=== PATIENT | female | born 1995 | race Caucasian/White ===

== ENCOUNTER 2016-11-10 09:10 | Emergency (ER) | payer OTHER ==
[~2016-11-10] VITALS: Ht 170.2 cm; Wt 77.1 kg
[~2016-11-10 09:10] MED LIST: KEF250; PROS
[2016-11-10 10:57] LABS: CALCIUM 8.9 mg/dL (8.5-10.1); CARBON DIOXIDE 23.8 mmol/L (21-32); CHLORIDE SERUM 106 mmol/L (98-107); CREATININE SERUM 0.7 mg/dL (0.6-1.0); GFR1 > 60 mL/min; GLUCOSE SERUM 93 mg/dL (74-106); POTASSIUM SERUM 3.9 mmol/L (3.5-5.1); SODIUM SERUM 141 mmol/L (136-145)
[2016-11-10 11:01] LABS: ALBUMIN 3.9 g/dL (3.4-5.0); ALKALINE PHOSPHATASE 82 U/L (46-116); ALT/SGPT 25 U/L (14-59); AST/SGOT 20 U/L (15-37); BILIRUBIN TOTAL 0.4 mg/dL (0.20-1.00); LIPASE 87 IU/L (73-393); TOTAL PROTEIN, SERUM 7.6 g/dL (6.4-8.2)
[2016-11-10 11:22] LABS: BASOPHIL % 0.6 % (0-2); PLATELET COUNT 310 x10^3mcL (130-400); RED CELL DISTRIBUTION WIDTH 13.6 % (11.5-14.5)
[2016-11-10 12:04] VITALS: BP 126/85
== END 2016-11-10 12:05 | disposition home or self-care (01) ==
LOC: ED 09:10
PROVIDERS: Emergency Medicine
DX: R10.9 Unspecified abdominal pain (principal); J45.909 Unspecified asthma, uncomplicated
CPT/HCPCS: 36415; J1885

== ENCOUNTER 2018-09-02 10:58 | Emergency (ER) | payer OTHER ==
[~2018-09-02] VITALS: Ht 172.7 cm; Wt 74.8 kg
[2018-09-02 11:35] VITALS: Ht 172.7 cm; Wt 74.8 kg
[2018-09-02 15:05] VITALS: BP 110/74
== END 2018-09-02 15:05 | disposition home or self-care (01) ==
LOC: ED 10:58
DX: R05 Cough (principal); N94.89 Other specified conditions associated with female genital organs and menstrual cycle; R50.9 Fever, unspecified; J45.909 Unspecified asthma, uncomplicated

== ENCOUNTER 2018-10-18 12:59 | Emergency (ER) | payer OTHER ==
[~2018-10-18] VITALS: Ht 170.2 cm; Wt 76.2 kg
[2018-10-18 13:10] VITALS: BP 92/52; Ht 170.2 cm; Wt 76.2 kg
== END 2018-10-18 15:14 | disposition home or self-care (01) ==
LOC: ED 12:59
DX: L02.415 Cutaneous abscess of right lower limb (principal); J45.909 Unspecified asthma, uncomplicated
CPT/HCPCS: J2001

== ENCOUNTER 2018-10-20 17:23 | Emergency (ER) | payer OTHER ==
[~2018-10-20] VITALS: Ht 170.2 cm; Wt 76.2 kg
[2018-10-20 17:30] VITALS: Ht 170.2 cm; Wt 76.2 kg
[2018-10-20 19:42] VITALS: BP 127/66
== END 2018-10-20 19:42 | disposition home or self-care (01) ==
LOC: ED 17:23
DX: L02.234 Carbuncle of groin (principal); J45.909 Unspecified asthma, uncomplicated

== ENCOUNTER 2019-03-07 10:53 | Emergency (ER) | payer MEDICAID ==
[2019-03-07 12:00] LABS: BASOPHIL % 0.3 % (0-2); PLATELET COUNT 314 x10^3mcL (130-400); RED CELL DISTRIBUTION WIDTH 14.1 % (11.5-14.5)
[2019-03-07 12:06] LABS: CALCIUM 8.9 mg/dL (8.5-10.1); CARBON DIOXIDE 24.8 mmol/L (21-32); CHLORIDE SERUM 101 mmol/L (98-107); CREATININE SERUM 0.6 mg/dL (0.6-1.0); GFR1 > 60 mL/min; GLUCOSE SERUM 75 mg/dL (74-106); POTASSIUM SERUM 3.8 mmol/L (3.5-5.1); SODIUM SERUM 138 mmol/L (136-145)
[2019-03-07 12:10] LABS: ALBUMIN 3.9 g/dL (3.4-5.0); ALKALINE PHOSPHATASE 56 U/L (46-116); ALT/SGPT 14 U/L (14-59); AST/SGOT 8 U/L (15-37); BILIRUBIN TOTAL 0.36 mg/dL (0.20-1.00); LIPASE 53 IU/L (73-393); TOTAL PROTEIN, SERUM 7.9 g/dL (6.4-8.2)
[2019-03-07 12:36] LABS: UA SPECIFIC GRAVITY 1.025 (1.005-1.035); microscopic required? YES; urine erythrocyte NEGATIVE (NEGATIVE)
[2019-03-07 15:25] VITALS: BP 112/55
== END 2019-03-07 15:25 | disposition home or self-care (01) ==
LOC: ED 10:53
PROVIDERS: Emergency Medicine
DX: O23.41 Unspecified infection of urinary tract in pregnancy, first trimester (principal); J45.909 Unspecified asthma, uncomplicated; Z3A.01 Less than 8 weeks gestation of pregnancy
CPT/HCPCS: J0696; J2765; J7030; J7060

== ENCOUNTER 2019-12-19 09:08 | Day surgery (SDC) | payer OTHER ==
[~2019-12-19] VITALS: Ht 170.2 cm; Wt 89.3 kg
[2019-12-19 10:09] VITALS: BP 116/71
[2019-12-19 16:11] VITALS: BP 118/78
== END 2019-12-19 16:00 | disposition home or self-care (01) ==
LOC: DS 09:08 → OR 12:00 → DS 12:00
PROVIDERS: ATTEND Obstetrics & Gynecology
DX: L73.2 Hidradenitis suppurativa (principal); N76.6 Ulceration of vulva; J45.909 Unspecified asthma, uncomplicated; E66.9 Obesity, unspecified; Z11.59 Encounter for screening for other viral diseases
CPT/HCPCS: J2250; J2405; J2704; J3010; J3490; J7120; U0003-CS